=== PATIENT | male | born 1980 | race African-American/Black ===

== ENCOUNTER 2017-04-02 22:26 | Emergency (ER) | payer MEDICAID ==
[~2017-04-02] VITALS: Ht 177.8 cm; Wt 86.2 kg
[2017-04-02] MEDS ORDERED: ABILIFY2 MG ORAL (22:50)
[2017-04-02] MEDS ORDERED: HYDROCHLOROTH12.5 M2 ORAL (22:50)
[2017-04-02] MEDS ORDERED: LISINOPRIL2.5 MG ORAL (22:50)
[2017-04-02] MEDS ORDERED: AMLODIPINE BES2.5 MG ORAL (22:50)
[2017-04-02] MEDS ORDERED: Ketorolac 30mg Inj IV ONE (23:00)
[2017-04-02] MEDS ORDERED: Morphine Sulfate 4mg/ml Inj IVP ONE (23:00)
[2017-04-02] MEDS ORDERED: HYDROmorphone 1mg/ml Carpuject IVP ONE (23:15)
[2017-04-02] MEDS ORDERED: Tubing IV Cassette IV ONE (23:16)
[2017-04-02 23:34] LABS: BASOPHILS % (AUTO) 1.1 % (0.0-2.0); EOSINOPHILS % (AUTO) 0.4 % (0.0-3.0); LYMPHOCYTES % (AUTO) 6.5 % (20.0-45.0); MEAN CORPUSCULAR HEMOGLOBIN 28.8 PG (27.0-31.0); MEAN CORPUSCULAR HGB CONC 33.5 G/DL (32.0-36.0); MEAN CORPUSCULAR VOLUME 86 FL (80-99); MEAN PLATELET VOLUME 5.7 FL (6.5-10.1); MONOCYTES % (AUTO) 11.7 % (1.0-10.0); NEUTROPHILS % (AUTO) 80.4 % (45.0-75.0); PLATELET COUNT 248 K/UL (150-450); RED BLOOD COUNT 4.39 M/UL (4.70-6.10); RED CELL DISTRIBUTION WIDTH 13.3 % (11.6-14.8); WHITE BLOOD COUNT 6.9 K/UL (4.8-10.8)
[2017-04-02 23:52] LABS: TROPONIN I < 0.30 ng/mL (<=0.30)
[2017-04-02 23:54] LABS: ALANINE AMINOTRANSFERASE 12 U/L (3-41); ANION GAP 20 (5-15); ASPARTATE AMINO TRANSFERASE 22 U/L (5-40); CALCIUM 9.3 mg/dL (8.6-10.2); CARBON DIOXIDE 22 mEQ/L (20-30); CHLORIDE 96 mEQ/L (98-107); CREATININE 1.1 mg/dL (0.7-1.2); GLOMERULAR FILTRATION RATE > 60 mL/min (>60); HEMOLYSIS 63; LIPASE 56 U/L (< 60); POTASSIUM 3.9 mEQ/L (3.4-4.9); SODIUM 138 mEQ/L (135-145); TOTAL PROTEIN 7.7 g/dL (6.6-8.7)
[2017-04-03 00:03] VITALS: BP 140/44
[2017-04-03] MEDS ORDERED: HYDROmorphone 1mg/ml Carpuject IVP ONE (01:15)
[2017-04-03 01:53] VITALS: BP 122/80
[2017-04-03 02:50] LABS: KETONES,URINE 3+ (NEGATIVE); LEUKOCYTE ESTERASE ,URINE 1+ (NEGATIVE); NITRITE,URINE NEGATIVE (NEGATIVE); PH,URINE 5 (4.5-8.0); PROTEIN,URINE 2+ (NEGATIVE); UROBILINOGEN,URINE NORMAL MG/DL (0.0-1.0)
[2017-04-03 03:00] LABS: APPEARANCE,URINE CLEAR
[2017-04-03 03:05] LABS: BACTERIA,URINE FEW /HPF; RBC,URINE 0-2 /HPF (0 - 0)
[2017-04-03] MEDS ORDERED: KEFLEX500 MG ORAL (03:13)
[2017-04-03] MEDS ORDERED: TRAMADOL HCL50 MG ORAL (03:13)
[2017-04-03 03:23] VITALS: BP 111/84
[2017-04-03 03:24] VITALS: BP 111/84
--- NOTE | 2017-04-03 03:27 | Emergency Room Report ---
History of Present Illness General Chief Complaint: Abdominal Pain Source: Patient Present Illness HPI 36-year-old male presents to ED for evaluation. Patient states for the last 4 days he's been having vomiting and diarrhea. States the he started having abdominal pain. Pain is sharp, 10 out of 10, diffuse, nonradiating. Per triage patient has fever. Patient states he has history of gastric bypass. Patient upon arrival is in distress, thrashing and screaming on the hospital bed. No other aggravating or relieving factors. Denies any other associated symptoms Allergies: Coded Allergies: No Known Allergies (Unverified , 04/02/17) Patient History Past Medical History: HTN Past Surgical History: other - Gastric bypass Pertinent Family History: none Social History: Denies: alcohol use, drug use, smoking Immunizations: UTD Reviewed Nursing Documentation: PMH: Agreed, PSxH: Agreed Nursing Documentation-PMH Hx Cardiac Problems: Yes - TIA Hx Hypertension: Yes Review of Systems All Other Systems: negative except mentioned in HPI Physical Exam Vital Signs Date Time Temp Pulse Resp B/P Pulse Ox O2 Delivery O2 Flow Rate FiO2 04/02/17 22:44 109 18 176/90 100 Room Air 04/03/17 00:03 100.2 Sp02 EP Interpretation: reviewed, normal General Appearance: alert, GCS 15, non-toxic, severe distress Head: normocephalic, atraumatic Eyes: bilateral eye PERRL, bilateral eye normal inspection ENT: hearing grossly normal, normal pharynx, no angioedema, normal voice Neck: full range of motion, supple/symm/no masses Respiratory: chest non-tender, lungs clear, normal breath sounds, speaking full sentences Cardiovascular #1: regular rate, rhythm, no edema Cardiovascular #2: 2+ carotid (R), 2+ carotid (L), 2+ radial (R), 2+ radial (L) , 2+ dorsalis pedis (R), 2+ dorsalis pedis (L) Gastrointestinal: normal bowel sounds, soft, non-distended, no guarding, no rebound, tenderness Rectal: deferred Genitourinary: normal inspection, no CVA tenderness Musculoskeletal: back normal, gait/station normal, normal range of motion, non- tender Neurologic: alert, oriented x3, responsive, motor strength/tone normal, sensory intact, speech normal Psychiatric: judgement/insight normal, memory normal, mood/affect normal, no suicidal/homicidal ideation, anxious Reflexes: 3+ bicep (R), 3+ bicep (L), 3+ tricep (R), 3+ tricep (L), 3+ knee (R) , 3+ knee (L) Skin: normal color, no rash, warm/dry, well hydrated Lymphatic: no adenopathy Medical Decision Making Diagnostic Impression: Primary Impression: Gastroenteritis Additional Impressions: Abdominal pain Qualified Codes: R10.9 - Unspecified abdominal pain Methamphetamine abuse UTI (urinary tract infection) Qualified Codes: N39.0 - Urinary tract infection, site not specified ER Course Hospital Course 36-year-old male presents to ED with abdominal pain, fever, vomiting and diarrhea Differential diagnosis includes-appendicitis, cholecystitis, small bowel obstruction, gastritis, Clinical course Patient placed on stretcher. After initial history and physical I ordered labs , IV fluids, pain medications and CT scan Labs - no leukocytosis, electrolyte, LFTs normal CT scan shows no acute pathology, thickened bladder concerning for cystitis UA shows some bacteria with questionable UTI Patient presentation was very concerning given negative workup, I ordered U. tox was shows positive amphetamines I feel this is a highly complex case requiring extensive working including EKG/ Rhythm strip, Xray/CT/US, Blood/urine lab work, repeat exams while in ED, and administration of strong opiates/narcotics for pain control, admission to hospital or close patient follow up. Diagnosis - gastroenteritis, abdominal pain , methamphetamine abuse, UTI Stable and discharged to home with prescription for Keflex, tramadol. Followup with PMD. Return to ED if symptoms recur or worsen Labs Test 04/02/17 23:05 04/03/17 02:30 White Blood Count 6.9 K/UL (4.8-10.8) Red Blood Count 4.39 M/UL (4.70-6.10) Hemoglobin 12.7 G/DL (14.2-18.0) Hematocrit 37.8 % (42.0-52.0) Mean Corpuscular Volume 86 FL (80-99) Mean Corpuscular Hemoglobin 28.8 PG (27.0-31.0) Mean Corpuscular Hemoglobin Concent 33.5 G/DL (32.0-36.0) Red Cell Distribution Width 13.3 % (11.6-14.8) Platelet Count 248 K/UL (150-450) Mean Platelet Volume 5.7 FL (6.5-10.1) Neutrophils (%) (Auto) 80.4 % (45.0-75.0) Lymphocytes (%) (Auto) 6.5 % (20.0-45.0) Monocytes (%) (Auto) 11.7 % (1.0-10.0) Eosinophils (%) (Auto) 0.4 % (0.0-3.0) Basophils (%) (Auto) 1.1 % (0.0-2.0) Sodium Level 138 mEQ/L (135-145) Potassium Level 3.9 mEQ/L (3.4-4.9) Chloride Level 96 mEQ/L (98-107) Carbon Dioxide Level 22 mEQ/L (20-30) Anion Gap 20 (5-15) Blood Urea Nitrogen 18 mg/dL (7-23) Creatinine 1.1 mg/dL (0.7-1.2) Estimat Glomerular Filtration Rate > 60 mL/min (>60) Glucose Level 139 mg/dL (74-106) Calcium Level 9.3 mg/dL (8.6-10.2) Total Bilirubin 0.4 mg/dL (0.0-1.2) Aspartate Amino Transf (AST/SGOT) 22 U/L (5-40) Alanine Aminotransferase (ALT/SGPT) 12 U/L (3-41) Alkaline Phosphatase 78 U/L (40-129) Troponin I < 0.30 ng/mL (<=0.30) Total Protein 7.7 g/dL (6.6-8.7) Albumin 3.9 g/dL (3.5-5.2) Globulin 3.8 g/dL Albumin/Globulin Ratio 1.0 (1.0-2.7) Lipase 56 U/L (< 60) Urine Color Yellow Urine Appearance Clear Urine pH 5 (4.5-8.0) Urine Specific Mc[place]ave 1.020 (1.005-1.035) Urine Protein 2+ (NEGATIVE) Urine Glucose (UA) Negative (NEGATIVE) Urine Ketones 3+ (NEGATIVE) Urine Occult Blood Negative (NEGATIVE) Urine Nitrite Negative (NEGATIVE) Urine Bilirubin Negative (NEGATIVE) Urine Urobilinogen Normal MG/DL (0.0-1.0) Urine Leukocyte Esterase 1+ (NEGATIVE) Urine RBC 0-2 /HPF (0 - 0) Urine WBC 5-10 /HPF (0 - 0) Urine Squamous Epithelial Cells None /LPF (NONE/OCC) Urine Bacteria Few /HPF (NONE) Urine Opiates Screen Negative (NEGATIVE) Urine Barbiturates Screen Negative (NEGATIVE) Phencyclidine (PCP) Screen Negative (NEGATIVE) Urine Amphetamines Screen Positive (NEGATIVE) Urine Benzodiazepines Screen Negative (NEGATIVE) Urine Cocaine Screen Negative (NEGATIVE) Urine Marijuana (THC) Screen Positive (NEGATIVE) CT/MRI/US Diagnostic Results CT/MRI/US Diagnostic Results : Imaging Test Ordered: CT abdomen/pelvis Impression No acute process, thickened bladder concerning for cystitis. Gastric bypass noted Last Vital Signs Date Time Temp Pulse Resp B/P Pulse Ox O2 Delivery O2 Flow Rate FiO2 04/03/17 03:09 98.9 04/03/17 01:53 108 18 122/80 100 Room Air Disposition: HOME, SELF-CARE Condition: Stable Scripts Tramadol Hcl* (ULTRAM*) 50 Mg Tablet 50 MG ORAL Q6H Y for For Pain, #30 TAB 0 Refills Prov: LUIS FELIPE DORMAN M.D. 04/03/17 Cephalexin* (KEFLEX*) 500 Mg Capsule 500 MG ORAL Q6H, #28 CAP 0 Refills Prov: LUIS FELIPE DORMAN M.D. 04/03/17 Patient Instructions: Viral Gastroenteritis, Adult LUIS FELIPE DORMAN M.D. Apr 03, 2017 03:27
--- NOTE | 2017-04-03 12:20 | Diagnostic Imaging Report ---
Clinical Indication: ABD DIST, abdominal pain Technique: No oral contrast utilized, per emergency room physician request IV administration nonionic contrast. Venous phase spiral acquisition obtained through the abdomen and pelvis. Multiplanar reconstructions were generated. Total dose length product 84 mGycm. CTDIvol(s) 70 mGy. Dose reduction achieved using automated exposure control Comparison: Findings: There are postsurgical changes of the stomach, likely prior gastric bypass. The appendix is normal. There is equivocal wall thickening of the ascending and proximal transverse colon. This could be an artifact of under distention. No evidence of diverticulosis or diverticulitis there are mildly prominent gas-filled anterior small bowel loops. Distal small bowel loops are also somewhat prominent fluid-filled. No mindi transition point demonstrated. The liver is minimally hypoattenuating, somewhat enlarged. No focal abnormalities. The gallbladder is distended. There is questionably a small gallstone near the gallbladder neck. No biliary ductal dilatation. The pancreas, spleen, adrenals, kidneys are unremarkable. No retroperitoneal or mesenteric mass or adenopathy. The bladder is thick walled. Unremarkable seminal vesicles. The included lung bases are clear. The bones are unremarkable. Impression: Equivocally prominent gas and fluid filled proximal small bowel loops, could indicate mild enteritis changes. Correlation with clinical findings is recommended. Bladder wall thickening, suspicious for cystitis. Correlate with clinical and laboratory findings Mildly hypoattenuating slightly enlarged liver, consistent with fatty change Equivocal small gallbladder neck stone Evidence of prior gastric bypass surgery This agrees with the preliminary interpretation provided overnight by [facility] teleradiology service. The CT scanner at [facility] is accredited by the [employer] and the scans are performed using protocols designed to limit radiation exposure to as low as reasonably achievable to attain images of sufficient resolution adequate for diagnostic evaluation.
== END 2017-04-03 03:25 | disposition home or self-care (01) ==
LOC: EMR 22:52
DX: K52.9 Noninfective gastroenteritis and colitis, unspecified (principal); F15.10 Other stimulant abuse, uncomplicated; N39.0 Urinary tract infection, site not specified; I10 Essential (primary) hypertension; Z98.84 Bariatric surgery status; Z86.73 Personal history of transient ischemic attack (TIA), and cerebral infarction without residual deficits
CPT/HCPCS: 36415; 74177; 80053; 80300; 81003; 83690; 84484; 85025; 87040; 96360; 96361; 96374; 96375; 99284; J1170; J1885; J2405; J7040; Q9967